=== PATIENT | female | born 1980 | race Caucasian/White ===

== ENCOUNTER → 2016-08-21 | Outpatient (CLI) | payer OTHER ==
[~2016-08-21] MED LIST: BENT20TA PO; CARA1TAB6 PO; MUSCLE RELAXER; NAPR-576 PO; PANT20 PO; PAXI10TA2 PO; ROBA500T PO; SIMV5TAB3 PO; TRAZ50TA12 PO
--- NOTE | 2016-08-22 14:39 | EKG ---
Date Performed: 08/21/2016 Time Performed: 11:03:11 PTAGE: 36 years EKG: Sinus rhythm NORMAL ECG NO PREVIOUS TRACING DOCTOR: Raúl Martinez Interpretating Date/Time 08/22/2016 14:38:16
== END ==
LOC: HCAV 10:32
DX: F31.61 Bipolar disorder, current episode mixed, mild (principal); F42.2 Mixed obsessional thoughts and acts; F43.12 Post-traumatic stress disorder, chronic
CPT/HCPCS: 93005

== ENCOUNTER 2016-08-26 16:20 | Emergency (ER) | payer OTHER ==
[~2016-08-26] VITALS: Ht 160 cm; Wt 50.0 kg
[~2016-08-26 16:20] MED LIST changes: -MUSCLE RELAXER; -PAXI10TA2 PO; -ROBA500T PO; -SIMV5TAB3 PO; -TRAZ50TA12 PO
[2016-08-26 16:21] VITALS: BP 117/61; PULSE 92; RESP 15; TEMP 98.1; O2SAT 98
[2016-08-26] MEDS ORDERED: MUSCLE RELAXER (16:42)
[2016-08-26] MEDS ORDERED: PAXI10TA2 PO (16:42)
--- NOTE | 2016-08-26 16:53 | PD ---
HPI . Left shoulder pain 1 week Chief Complaint: Pain: Acute or Chronic Time Seen by Provider: 16:53 Travel History International Travel<30 days: No Contact w/Intl Traveler<30days: No Traveled to known affect area: No History of Present Illness HPI 36-year-old female here with complaints of left shoulder pain for one week. Patient tells me that she has been experiencing pain in her left shoulder for about a week and change. She tells me that she has been self-medicating at home and using muscle relaxers and OTC NSAIDs. She says that despite using the medications that she is not getting any better. She does have a primary care provider, but says that she has yet to see him for this issue. Denies any mechanism of injury. She denies any trauma. She has no other complaints other than left shoulder pain. Asked to point where pain is and she is pointing at her paraspinal muscles in the thoracic and start of the lumbar area. She is also showing me that she has pain deep within her shoulder blade. She denies any chest pain, nausea, vomiting, diaphoresis or shortness of breath. She is asking me for pain medications. She is accompanied by her [id number]. PFSH Past Medical History Depression: Yes Diminished Hearing: No Psychiatric: Yes (PTSD, OCD, MOOD DISORDER) Tetanus Vaccination: > 5 Years Influenza Vaccination: No ?: Not : 5 Para: 4 Miscarriage: 1 : 0 Tubal Ligation: Yes Past Surgical History Appendectomy: Yes Cholecystectomy: Yes Social History Alcohol Use: No (RARELY) Tobacco Use: Yes (5 CIGS A DAY) Substance Use: No Allergies-Medications (Allergen,Severity, Reaction): Coded Allergies: No Known Allergies (Unverified , 04/26/16) Reported Meds & Prescriptions Reported Meds & Active Scripts Active Robaxin (Methocarbamol) 500 Mg Tab 500 Mg PO TID Reported [Muscle Relaxer] Paxil (Paroxetine HCl) 10 Mg Tab 10 Mg PO DAILY Review of Systems General / Constitutional: No: Fever Eyes: No: Visual changes HENT: No: Headaches Cardiovascular: No: Chest Pain or Discomfort Respiratory: No: Shortness of Breath Gastrointestinal: No: Abdominal Pain Genitourinary: No: Dysuria Musculoskeletal: Positive: Pain (back/shoulder) Skin: No Rash Neurologic: No: Weakness Psychiatric: No: Depression Endocrine: No: Polydipsia Hematologic/Lymphatic: No: Easy Bruising Physical Exam Narrative GENERAL: AAO x 3, no acute distress, Well-nourished, well-developed patient. SKIN: Warm and dry. No visible rashes or bruising. HEAD: Normocephalic and atraumatic. EYES: No scleral icterus. No injection or drainage. ENT: No nasal drainage noted. Mucous membranes pink. Airway patent. NECK: Supple, trachea midline. No JVD. CARDIOVASCULAR: Regular rate and rhythm without murmurs, gallops, or rubs. RESPIRATORY: Breath sounds equal bilaterally. No accessory muscle use. No rhonchi or rales. GASTROINTESTINAL: Abdomen soft, non-tender, nondistended. EXTREMITIES: No cyanosis or edema. ROM in left shoulder slightly limited. BACK: Nontender without obvious deformity. No CVA tenderness. There is muscle tenderness in the T spine area. She also has pain in her rotator cuff muscle. She does not have spinal tenderness. The pain is reproducible with palpation. PSYCH: AAO x 3, normal affect. Data Data Last Documented VS Vital Signs Date Time Temp Pulse Resp B/P Pulse Ox O2 Delivery O2 Flow Rate FiO2 08/26/16 16:21 98.1 92 15 117/61 98 MDM Medical Decision Making Medical Screen Exam Complete: Yes Emergency Medical Condition: Yes Medical Record Reviewed: Yes Differential Diagnosis muscle strain, rotator cuff injury, less likely shoulder fracture Narrative Course 36-year-old female here with complaints of left shoulder pain for one week. Patient tells me that she has been experiencing pain in her left shoulder for about a week and change. She tells me that she has been self-medicating at home and using muscle relaxers and OTC NSAIDs. She says that despite using the medications that she is not getting any better. She does have a primary care provider, but says that she has yet to see him for this issue. Denies any mechanism of injury. She denies any trauma. She has no other complaints other than left shoulder pain. Asked to point where pain is and she is pointing at her paraspinal muscles in the thoracic and start of the lumbar area. She is also showing me that she has pain deep within her shoulder blade. She denies any chest pain, nausea, vomiting, diaphoresis or shortness of breath. She is asking me for pain medications. She is accompanied by her [id number]. Patient does appear to have some paraspinal muscle tenderness on examination. This seems to be consistent with muscle strain and she possibly has a rotator cuff injury. My index of suspicion is low for any other etiologies. Patient is repeatedly requesting pain medications. I advised that the most I will be able to provide is some muscle relaxers. She does not seem thrilled with my response. I advised her that she will need to follow-up with her primary care provider for further workup and treatment. Diagnosis Primary Impression: Muscle strain Patient Instructions: General Instructions, Muscle Strain (ED) Additional Instructions: Please return to emergency department if your symptoms return or worsen. Follow up with your primary care provider. Take medications as prescribed. Muscle relaxers can cause drowsiness. Do not drive, swim or operate heavy machinery while using these medications. Med/Other Pt SpecificInfo: Prescription(s) given Scripts Methocarbamol (Robaxin)500 Mg Ofs369 Mg PO TID #15 TAB Ref 0 Prov:Kurtis Wall MD 08/26/16 Disposition: 01 DISCHARGE HOME Condition: Stable Elayne Mcfarland Aug 26, 2016 16:53
[2016-08-26] MEDS ORDERED: ROBA500T PO (16:56)
[2016-10-26] MEDS ORDERED: TRAZ50TA12 PO (10:21)
[2016-10-26] MEDS ORDERED: SIMV5TAB3 PO (11:05)
== END 2016-08-26 17:17 | disposition home or self-care (01) ==
LOC: NEPB 16:20
DX: S46.912A Strain of unspecified muscle, fascia and tendon at shoulder and upper arm level, left arm, initial encounter (principal); F17.210 Nicotine dependence, cigarettes, uncomplicated
CPT/HCPCS: 99283